=== PATIENT | female | born 1955 | race Caucasian/White ===

== ENCOUNTER 2017-10-21 08:57 | Inpatient (IN) ==
[2017-10-21] MEDS ORDERED: *HR* Dextrose 50 % in Water (Syg) 50 ML SYRINGE ONE (11:55)
[2017-10-21] MEDS ORDERED: Dextrose Gel 15 GM/37.5 ML TUBE PO PRN ×2 (12:05)
[2017-10-21] MEDS ORDERED: D5% in Water 1,000 ML IVC PRN (12:05)
[2017-10-21] MEDS ORDERED: Albuterol 2.5 MG/3 ML NEBULIZER IH PRN (12:06)
[2017-10-21] MEDS: *HR* Dextrose 50 % in Water (Syg) 50 ML SYRINGE IVP PRN (12:10)
--- NOTE | 2017-10-21 12:19 | Orthopedic History & Physical ---
Date of Encounter: 10/21/17 Time of Encounter: 12:19 Assessment and Plan (1) Dislocated shoulder Current visit: Yes Status: Chronic Qualifiers: Encounter type: subsequent encounter Laterality: left Qualified Code(s): S43.005D - Unspecified dislocation of left shoulder joint, subsequent encounter (2) Painful orthopaedic hardware Current visit: Yes Status: Chronic (3) Recurrent dislocation, left shoulder Current visit: Yes Status: Chronic (4) Closed left radial fracture Current visit: No Status: Chronic Qualifiers: Encounter type: initial encounter Radius location: distal Fracture morphology: unspecified fracture morphology Qualified Code(s): S52.502A - Unspecified fracture of the lower end of left radius, initial encounter for closed fracture (5) History of total replacement of left shoulder joint Current visit: Yes Status: Chronic (6) Altered mental status Current visit: Yes Status: Acute Qualifiers: Altered mental status type: unspecified Qualified Code(s): R41.82 - Altered mental status, unspecified (7) Diabetes Current visit: Yes Status: Chronic Qualifiers: Diabetes mellitus type: type 2 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 Huerta is a 61 year old female presents [facility] as a direct admission from our office at [facility]. She was seen by this provider in [facility] location this morning, 10/21/17. She is being admitted under Dr. Alberts secondary to her left shoulder prosthetic dislocation. She was most recently seen by Dr. Alberts in our office for recurrent dislocation of the left shoulder with painful orthopedic hardware and instability left shoulder on 10/15/17. She previously been scheduled for revision total shoulder surgery for 10/21/17 however it was revealed the patient was most recently admitted at [facility] for a medical complication. Her diagnosis at that admission was altered mental status with hypoglycemia. She is being admitted at this time for further clearance for surgery to be scheduled for next week. We will be consult hospitalist team for altered mental status as well as cardiology teams as patient has an extensive cardiac history. Patient was diagnosed with left proximal humerus fracture in 11/[address] Johnson at [facility]. She then underwent surgery by Dr. Johnson in 12/06/2016 for "Humeral head replacement left shoulder". Patient then developed left shoulder subluxation and underwent revision surgery by Dr. Johnson on 03/21/2017 for "removal humeral head and insertion of reverse total shoulder". She then saw Dr. Alberts on 10/05/17 for evaluation. Patient was then scheduled as stated above for revision shoulder surgery secondary to glenosphere dissociation and recurrent dislocation of the prosthetic joint of the left shoulder. Patient was admitted to [facility] in [place] on 10/18/17 for altered mental status. Review of these records reveal that patient has an extensive and known history of CHF, CKD, hypertension, diabetes mellitus type 2, hypothyroidism, CVA , and DVT. She was diagnosed with polypharmacy and hypoglycemia. She has a history of these per documentation. Records note that she was admitted for similar complaints on 10/02/17. Patient's urine drug tox screen at [facility] revealed antidepressant only. Patient was admitted with telemetry at [facility]. Patient informs this provider this morning in the office that her medications were changed and she has improved since discharge per patient which occurred per patient on 10/20/17. It is noted by this provider today, 10/21, that patient continues with altered mental status as she is oriented to person and place only. Patient then was seen by Dr. Santana at [facility] in [place] yesterday on 10/20 for her left wrist fracture. He has been monitoring her for a left distal humerus fracture that occurred after a fall onto the extremity since 06/2017 per documentation. She was then diagnosed with a left distal radius fracture on 09/26/17. This distal radius fracture occurred after a fall onto the extremity per documentation. Dr. Santana and Dr. Alberts have conversed regarding the distal radius fracture that is currently casted. On exam today patient is resting comfortably in bed. She is eating lunch at this time. She is alert and oriented to person and place. She does not initiate conversation. She does smile at appropriate comments and when this provider smiles to her in greeting. She is neurovascularly intact with regard to the bilateral upper extremities and lower extremities. Short arm cast is noted to the left wrist. Range of motion of left shoulder is significantly restricted. There is mild tenderness to palpation to the anterior shoulder. No skin disruption noted at this time. Most recent shoulder films reveal the following: XR/XR shoulder complete LT IMPRESSION: Chronic dislocation of the left shoulder arthroplasty with likely displaced humeral head articular component as well as glenohumeral anterior inferior dislocation. Possible acute nondisplaced fracture of the glenoid adjacent to the arthroplasty component. This is not completely visualized. No evidence of acute traumatic humeral diaphyseal fracture. Cardiomegaly and moderate pulmonary edema. D/ / 09/27/2017 11:09:50 Tyrone Zeng MD / alyssa Interpreting Provider: Tyrone Zeng MD Assessment: Recurrent left shoulder dislocation Painful orthopedic hardware History of total shoulder replacement with Glenoid dissociation Closed distal left radius fracture Altered mental status of uncertain origin Plan: Hospitalist and Cardiology teams consulted and input appreciated. Seeking clearance for surgery for Tuesday 10/24 per/by Dr. Alberts for Left total shoulder reverse revision. NPO at midnight 10/23 Leave cast to right wrist in place to the weekend. We will address at surgery on Tuesday 10/24. Admission orders placed by Dr. Alberts. Past Med Surg Social Fam HX - Past Medical History Medical history: atrial fibrillation, diabetes, hyperlipidemia, hypertension Additional medical history: [place] Psychiatric history: no psych history - Past Surgical History Surgical History: cholecystectomy, knee replacement, orthopedic, other, LIBBY/BSO Additional surgical history: Ablasion for A-fib - Social History Smoking Status: Unknown if ever smoked Smokeless Tobacco Status: No Alcohol use: none Drug use: none Medications and Allergies Albuterol Sulfate [Ventolin Hfa] 1 - 2 puff IH Q4-6H PRN 10/21/17 [History] Amitriptyline HCl 100 - 300 mg PO HS 10/21/17 [History] Amlodipine Besylate 10 mg PO DAILY 10/21/17 [History] Atenolol 100 mg PO DAILY 10/21/17 [History] Atorvastatin Calcium [Lipitor] 80 mg PO HS 10/21/17 [History] Cholecalciferol (Vitamin D3) [Vitamin D] 50,000 unit PO QWEEK 10/21/17 [History] Dicyclomine [Bentyl] 20 mg PO BID 10/21/17 [History] Escitalopram [Lexapro] 10 mg PO DAILY 10/21/17 [History] Fenofibric Acid (Choline) [Trilipix] 135 mg PO DAILY 10/21/17 [History] Fluticasone Propionate [Flovent Hfa] 2 puff IH BID 10/21/17 [History] Furosemide [Lasix] 20 mg PO QPM 10/21/17 [History] Furosemide [Lasix] 40 mg PO QAM 10/21/17 [History] Insulin Glargine,Hum.rec.anlog [Lantus Solostar] 40 unit SQ HS 10/21/17 [History ] Insulin NPH Hum/Reg Insulin Hm [Novolin 70-30 100 Unit/ml Vial] 60 unit SQ QPM 10/21/17 [History] Insulin NPH Hum/Reg Insulin Hm [Novolin 70-30 100 Unit/ml Vial] 70 unit SQ QAM 10/21/17 [History] Isosorbide MONOnitrate (24 HR) [Imdur] 30 mg PO DAILY 10/21/17 [History] Levothyroxine [Synthroid] 25 mcg PO 0630 10/21/17 [History] Losartan Potassium [Cozaar] 100 mg PO DAILY 10/21/17 [History] Memantine HCl [Memantine HCl ER] 28 mg PO HS 10/21/17 [History] Nitroglycerin [Nitrostat] 0.4 mg SL Q5M PRN 10/21/17 [History] Potassium Chloride [Klor-Con 10] 20 meq PO DAILY 10/21/17 [History] Quetiapine Fumarate [SEROquel] 50 - 100 mg PO HS 10/21/17 [History] Ranitidine HCl [Zantac] 300 mg PO DAILY 10/21/17 [History] Tizanidine HCl 4 mg PO TID PRN 10/21/17 [History] Topiramate [Topamax] 100 mg PO HS 10/21/17 [History] 3 Allergy/AdvReac Type Severity Reaction Status Date / Time coconut oil AdvReac Hives Verified 01/23/16 05:53 codeine AdvReac Hives Verified 01/23/16 05:51 All Systems Reviewed: The remainder of the systems were reviewed and are negative Physical Exam - Constitutional Vitals: Temp Pulse Resp BP Pulse Ox 98.3 F 77 18 136/79 93 10/21/17 11:16 10/21/17 11:16 10/21/17 11:16 10/21/17 11:16 10/21/17 11:32 Results - Labs Result Diagrams: 10/21/17 13:07 10/21/17 13:07 Labs: All other labs normal.
[2017-10-21 13:29] LABS: Basophils % 0.6 %; Eosinophils # 0.1 K/mcL (0.0-0.6); Hematocrit 39.3 % (35.3-44.9); Hemoglobin 12.9 g/dL (11.5-15.4); Immature Granulocytes % 0.9 % (0-4); Lymphocytes # 1.7 K/mcL (0.6-4.6); Lymphocytes % 24.6 %; Mean Corpuscular HGB Conc 32.8 g/dL (31.6-35.5); Mean Corpuscular Hemoglobin 28.9 pg (28.0-33.3); Mean Corpuscular Volume 88.1 fL (83.0-100.0); Mean Platelet Volume 10.8 fL (9.4-12.4); Monocytes # 0.4 K/mcL (0.0-1.3); Monocytes % 5.4 %; Neutrophils # 4.7 K/mcL (1.6-8.9); Platelet Count 290 K/mcL (140-400); Red Blood Count 4.46 M/mcL (3.82-4.97); Red Cell Distribution Width 14.6 % (11.5-14.5); Segmented Neutrophils % 67.5 %
[2017-10-21 13:46] LABS: Calcium 9.4 mg/dL (8.6-10.3); Potassium 3.2 mEq/L (3.5-5.1)
[2017-10-21 13:49] LABS: Prothrombin Time 11.1 Seconds (9.4-12.1)
[2017-10-21 13:52] LABS: Activated Partial Thrombo Time 31.9 Seconds (26.0-36.0)
[2017-10-21] MEDS ORDERED: tiZANidine 4 MG TABLET PO PRN (13:53)
[2017-10-21] MEDS ORDERED: Nitroglycerin 0.4 MG TAB.SUBL SL PRN (13:53)
[2017-10-21] MEDS ORDERED: *HR* LORazepam 2 MG/ML VIAL IVP ONE (14:11)
--- NOTE | 2017-10-21 14:37 | Internal Medicine Consult Note ---
<Mary Hall - Last Filed: 10/21/17 15:06> Date of Encounter: 10/21/17 Time of Encounter: 14:25 - Assessment and plan (1) Altered mental status Current Visit: Yes Status: Acute Assessment and plan: Schedule CT of head/brain Neuro checks q shift Qualifiers: Altered mental status type: unspecified Qualified Code(s): R41.82 - Altered mental status, unspecified (2) Dislocated shoulder Current Visit: Yes Status: Acute Assessment and plan: Dr. Alberts admitted patient and will follow Plan left shoulder repair (surgery) on Tuesday Qualifiers: Qualified Code(s): S43.006D - Unspecified dislocation of unspecified shoulder joint, subsequent encounter (3) A-fib Current Visit: Yes Status: Acute Assessment and plan: Chronic Patient has Foot pumps on No anticoagulation due to surgery on Tuesday. 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 Huerta is a 61 year old female with history of atrial fibrillation, diabetes mellitus type 2, hyperlipidemia, hypertension, and ablation of A. fib. Hospitalist consulted due to altered mental status and confusion noted by the patient. She is here from [facility] for a dislocated shoulder repair. Apparently the patient fell and broke her left wrist/arm and dislocated her shoulder which have been repaired in the past. She has a cast on the left arm. Today the patient is alert and oriented 3, she indicated she takes medications that causes her to be confused. She also is a diabetic who takes insulin and she indicated that the dosing had been decreased due to periods of hypoglycemia. She indicated she thinks her thinking has been a little better today, however she did not initiate any conversation. Neuro check completed and she has generalized weakness, but no focal deficits were noted at this time. Will get Ct of the head/brain and start neuro checks q shift. Past Med Surg Social Fam HX - Past Medical History Medical history: atrial fibrillation, diabetes, hyperlipidemia, hypertension Additional medical history: [place] Psychiatric history: no psych history - Past Surgical History Surgical History: cholecystectomy, knee replacement, orthopedic, other, LIBBY/BSO Additional surgical history: Ablasion for A-fib - Social History Smoking Status: Unknown if ever smoked Smokeless Tobacco Status: No Alcohol use: none Drug use: none - Constitutional Constitutional: weakness (Generalized) - EENT Eyes: no dry eye, no pain Ears: no ear discharge, no ear pain Nose, mouth and throat: no post-nasal drip, no sinus pain - Cardiovascular Cardiovascular ROS IM: no dyspnea, no lightheadedness, no palpitations - Respiratory Respiratory: no cough - Gastrointestinal Gastrointestinal: no constipation, no heartburn, no loose stools, no nausea, no vomiting - Genitourinary Genitourinary: no hematuria Menstruation: no post hysterectomy - Musculoskeletal Musculoskeletal ROS IM: no muscle weakness - Integumentary Integumentary IM: no erythema - Neurological Neurological ROS: confusion, lack of coordination (Falls at home), weakness - Hematologic/Lymphatic Hematologic/Lymphatic: no easy bleeding, no easy bruising Internal Medicine - CN: Meds Albuterol Sulfate [Ventolin Hfa] 1 - 2 puff IH Q4-6H PRN 10/21/17 [History] Amitriptyline HCl 100 - 300 mg PO HS 10/21/17 [History] Amlodipine Besylate 10 mg PO DAILY 10/21/17 [History] Atenolol 100 mg PO DAILY 10/21/17 [History] Atorvastatin Calcium [Lipitor] 80 mg PO HS 10/21/17 [History] Cholecalciferol (Vitamin D3) [Vitamin D] 50,000 unit PO QWEEK 10/21/17 [History] Dicyclomine [Bentyl] 20 mg PO BID 10/21/17 [History] Escitalopram [Lexapro] 10 mg PO DAILY 10/21/17 [History] Fenofibric Acid (Choline) [Trilipix] 135 mg PO DAILY 10/21/17 [History] Fluticasone Propionate [Flovent Hfa] 2 puff IH BID 10/21/17 [History] Furosemide [Lasix] 20 mg PO QPM 10/21/17 [History] Furosemide [Lasix] 40 mg PO QAM 10/21/17 [History] Insulin Glargine,Hum.rec.anlog [Lantus Solostar] 40 unit SQ HS 10/21/17 [History ] Insulin NPH Hum/Reg Insulin Hm [Novolin 70-30 100 Unit/ml Vial] 60 unit SQ QPM 10/21/17 [History] Insulin NPH Hum/Reg Insulin Hm [Novolin 70-30 100 Unit/ml Vial] 70 unit SQ QAM 10/21/17 [History] Isosorbide MONOnitrate (24 HR) [Imdur] 30 mg PO DAILY 10/21/17 [History] Levothyroxine [Synthroid] 25 mcg PO 0630 10/21/17 [History] Losartan Potassium [Cozaar] 100 mg PO DAILY 10/21/17 [History] Memantine HCl [Memantine HCl ER] 28 mg PO HS 10/21/17 [History] Nitroglycerin [Nitrostat] 0.4 mg SL Q5M PRN 10/21/17 [History] Potassium Chloride [Klor-Con 10] 20 meq PO DAILY 10/21/17 [History] Quetiapine Fumarate [SEROquel] 50 - 100 mg PO HS 10/21/17 [History] Ranitidine HCl [Zantac] 300 mg PO DAILY 10/21/17 [History] Tizanidine HCl 4 mg PO TID PRN 10/21/17 [History] Topiramate [Topamax] 100 mg PO HS 10/21/17 [History] 3 Allergy/AdvReac Type Severity Reaction Status Date / Time coconut oil AdvReac Hives Verified 01/23/16 05:53 codeine AdvReac Hives Verified 01/23/16 05:51 Internal Medicine - CN: Exam - Constitutional Vitals: Temp Pulse Resp BP Pulse Ox 98.3 F 77 18 136/79 93 10/21/17 11:16 10/21/17 11:16 10/21/17 11:16 10/21/17 11:16 10/21/17 11:32 General appearance IM: Present: A&O X 3, answers questions appropriately - Head Head exam: Present: atraumatic, normocephalic - Eye Eye exam: Present: normal appearance Pupils: Present: PERRL - ENT ENT exam: Absent: mucous membranes dry - Neck Neck exam general surgery: Present: full ROM, normal inspection - Respiratory Respiratory exam: Present: CTAB - Cardiovascular Cardiovascular exam IM: Present: irregular rhythm (12 lead showed EKG) - GI/Abdominal GI/Abdominal exam IM: Present: normal bowel sounds, soft - Extremities Exam Extremities exam IM: Absent: full ROM (Left lower arm casted, left shoulder prosthesis displaced) - Expanded Upper Extremities Exam Shoulder exam: Present: dislocation (Left shoulder) Upper Arm exam: Absent: full ROM (Left upper extremity cast) Internal Medicine - CN: Reslt - Labs CBC & Chem 7: 10/21/17 13:07 10/21/17 13:07 Labs: Short CBC 10/21/17 Range/Units 13:07 WBC 6.9 (4.3-11.1) K/mcL Hgb 12.9 (11.5-15.4) g/dL Hct 39.3 (35.3-44.9) % Plt Count 290 (140-400) K/mcL Neutrophils # 4.7 (1.6-8.9) K/mcL BMP 10/21/17 13:07 Sodium 140 Potassium 3.2 L Chloride 102 Carbon Dioxide 30 H BUN 20 Creatinine 1.14 Glucose 104 Calcium 9.4 - ABG Interpretation ABG results: PT/INR, D-dimer PT 11.1 Seconds (9.4-12.1) 10/21/17 13:07 Consult Discharge Plan - Plan Referrals: Mary Zendejas MD [Primary Care Provider] - <Zoë Ellsworth - Last Filed: 10/22/17 09:11> Date of Encounter: 10/21/17 - Time Spent With Patient Total time spent is greater than 50% in coordination of care (as documented) at patient's floor/unit and/or counseling patient: Internal Medicine - CN: HPI - Data of Consult Requesting Physician: Richard Alberts MD - Consult Narrative History of present illness: Ms. Huerta is a 61 year old female Internal Medicine - CN: Exam - Constitutional Vitals: Temp Pulse Resp BP Pulse Ox 98.1 F 84 16 165/91 95 10/22/17 07:48 10/22/17 07:48 10/22/17 07:48 10/22/17 07:48 10/22/17 07:48 Internal Medicine - CN: Reslt - Labs CBC & Chem 7: 10/22/17 06:26 10/22/17 06:26 Labs: Short CBC 10/21/17 10/22/17 Range/Units 13:07 06:26 WBC 6.9 6.3 (4.3-11.1) K/mcL Hgb 12.9 12.8 (11.5-15.4) g/dL Hct 39.3 38.8 (35.3-44.9) % Plt Count 290 265 (140-400) K/mcL Neutrophils # 4.7 3.3 (1.6-8.9) K/mcL BMP 10/21/17 10/22/17 13:07 06:26 Sodium 140 141 Potassium 3.2 L 2.6 L Chloride 102 106 Carbon Dioxide 30 H 26 BUN 20 25 H Creatinine 1.14 1.18 Glucose 104 49 L Calcium 9.4 9.1 Liver Function 10/22/17 Range/Units 06:26 Total Bilirubin 0.5 (0.3-1.0) mg/dL AST 12 L (13-39) Units/L ALT 8 (7-52) Units/L Alkaline Phosphatase 74 (34-104) Units/L Albumin 3.6 (3.5-5.7) g/dL - ABG Interpretation ABG results: PT/INR, D-dimer PT 11.1 Seconds (9.4-12.1) 10/21/17 13:07 - Impressions Impressions Head CT 10/21/17 14:24 IMPRESSION: No acute intracranial abnormality. D/ / Delio Salas MD / Delio Salas MD Interpreting Provider: Delio Salas MD - Attending Attestation I have personally performed a face to face evaluation on this patient. I have reviewed and agree with the care plan provided by SHIPPING AND RECEIVING SUPERVISOR Mary Hall. History and Exam by me shows: Ms. Huerta is a 61 year old female with a relevant past medical history of CAD s/p [place] and PCI 2013, abhi not on anticoagulation, HTN, HLD, CVA, DM, heart murmur, diastolic CHF who admitted under Dr. Alberts's service for a tentatively scheduled revision of Left shoulder repair on 10/24/17. Apparently pt was admitted at [facility] for altered mental status. We were asked to evaluate the pt for AMS. Pt is alert, awake and O x 3 now. Does look slightly confused / slow / ?? Demented. A/p 1. AMS Unclear etiology Not sure this is her baseline will obtain CT of head check ammonia levels in AM on Tele neuro checks q shift
--- NOTE | 2017-10-21 15:26 | Cardiology Consult Note ---
<Frannie Pak - Last Filed: 10/21/17 15:20> Date of Encounter: 10/21/17 Time of Encounter: 15:00 Assessment and Plan (1) Preop cardiovascular exam Current Visit: Yes Status: Acute Per cardiology: -Preop risk stratification for orthopedic procedure. -Significant cardiac history. -Denies current symptoms. -Able to achieve 4 mets. -TTE 10/07/17 with LVEF 60-65%. Mild asymmetric hypertrophy of the basal seputm. Moderate left ventricular diastolic dysfunction. Normal right ventricular structure and function. Mild aortic regurgitation. Mild aortic stenosis. Mean gradient 13 mmHg. Mild tricuspid regurgitation. Mild-moderate pulmonary hypertension. No segmental wall motion abnormalities. -ECG with atrial fibrillation, no acute ischemic changes. -Discussed and reviewed with , patient is at moderate risk for michael- operative cardiovascular complications. -Anticipate cardiology sign off once seen and evaluated by . (2) A-fib Current Visit: Yes Status: Acute Per cardiology: -Known a.fib. Rate controlled on BB. -Follows with [facility]. -[id number] score 7 (gender, HTN, DM, vascular disease, CHF, CVA). Not on anticoagulation. Reports takes ASA at home. No anticoagulation listed on medication list. -Patient educated and aware of increased risk of CVA/embolic event with high [id number] score, states understanding. Recommend anticoagulation, however patient wishes to discuss with primary captain cannery tender prior to starting. Qualifiers: Atrial fibrillation type: chronic Qualified Code(s): I48.2 - Chronic atrial fibrillation Discussion w patient/family: The assessment and plan as outlined above was discussed with the patient who expressed understanding and agreement. All questions were answered. Thank you for involving us in the care of your patient. Please call with any questions. Discussed and reviewed with . History of Present Illness Consult date: 10/21/17 Requesting physician: Cheli Heaton Consult reason: pre op Chief complaint: shoulder pain History of present illness: Ms. Huerta is a 61 year old female with a relevant past medical history of CAD s/p [place] and PCI 2013, a.fib not on anticoagulation, HTN, HLD, CVA, DM, heart murmur, diastolic CHF who presented to [facility] with complaints of shoulder pain. Patient is tentatively scheduled for orthopedic surgery 10/24/17. Cardiology has been consulted for pre-op risk stratification. Patient denies chest pain, shortness fo breath, edema. Patient reports able to walk up a flight of stairs without stopping or symptoms. Patient follows with captain cannery tender at [facility]. Past Med Surg Social Fam HX - Past Medical History Attestation: Yes The following information was validated with the patient. Source: patient, old records reviewed Medical history: atrial fibrillation, coronary artery disease, CVA, diabetes, hyperlipidemia, hypertension, myocardial infarction Additional medical history: [place] Psychiatric history: no psych history - Past Surgical History Surgical History: cholecystectomy, knee replacement, orthopedic, other, LIBBY/BSO Additional surgical history: Ablasion for A-fib - Social History Smoking Status: Unknown if ever smoked Smokeless Tobacco Status: No Alcohol use: none Drug use: none Medications and Allergies Albuterol Sulfate [Ventolin Hfa] 1 - 2 puff IH Q4-6H PRN 10/21/17 [History] Amitriptyline HCl 100 - 300 mg PO HS 10/21/17 [History] Amlodipine Besylate 10 mg PO DAILY 10/21/17 [History] Atenolol 100 mg PO DAILY 10/21/17 [History] Atorvastatin Calcium [Lipitor] 80 mg PO HS 10/21/17 [History] Cholecalciferol (Vitamin D3) [Vitamin D] 50,000 unit PO QWEEK 10/21/17 [History] Dicyclomine [Bentyl] 20 mg PO BID 10/21/17 [History] Escitalopram [Lexapro] 10 mg PO DAILY 10/21/17 [History] Fenofibric Acid (Choline) [Trilipix] 135 mg PO DAILY 10/21/17 [History] Fluticasone Propionate [Flovent Hfa] 2 puff IH BID 10/21/17 [History] Furosemide [Lasix] 20 mg PO QPM 10/21/17 [History] Furosemide [Lasix] 40 mg PO QAM 10/21/17 [History] Insulin Glargine,Hum.rec.anlog [Lantus Solostar] 40 unit SQ HS 10/21/17 [History ] Insulin NPH Hum/Reg Insulin Hm [Novolin 70-30 100 Unit/ml Vial] 60 unit SQ QPM 10/21/17 [History] Insulin NPH Hum/Reg Insulin Hm [Novolin 70-30 100 Unit/ml Vial] 70 unit SQ QAM 10/21/17 [History] Isosorbide MONOnitrate (24 HR) [Imdur] 30 mg PO DAILY 10/21/17 [History] Levothyroxine [Synthroid] 25 mcg PO 0630 10/21/17 [History] Losartan Potassium [Cozaar] 100 mg PO DAILY 10/21/17 [History] Memantine HCl [Memantine HCl ER] 28 mg PO HS 10/21/17 [History] Nitroglycerin [Nitrostat] 0.4 mg SL Q5M PRN 10/21/17 [History] Potassium Chloride [Klor-Con 10] 20 meq PO DAILY 10/21/17 [History] Quetiapine Fumarate [SEROquel] 50 - 100 mg PO HS 10/21/17 [History] Ranitidine HCl [Zantac] 300 mg PO DAILY 10/21/17 [History] Tizanidine HCl 4 mg PO TID PRN 10/21/17 [History] Topiramate [Topamax] 100 mg PO HS 10/21/17 [History] 3 Allergy/AdvReac Type Severity Reaction Status Date / Time coconut oil AdvReac Hives Verified 01/23/16 05:53 codeine AdvReac Hives Verified 01/23/16 05:51 All Systems Review: The remainder of the systems were reviewed and are negative - Cardiovascular Cardiovascular: as per HPI Physical Examination Vital Signs, Last 4 Hours Pulse Ox 10/21/17 11:32 93 Vital Signs Temperature 98.3 F 10/21/17 11:16 Pulse Rate 77 10/21/17 11:16 Respiratory Rate 18 10/21/17 11:16 Blood Pressure 136/79 10/21/17 11:16 O2 Sat by Pulse Oximetry 93 10/21/17 11:16 Temperature 98.3 F 10/21/17 11:16 Pulse Rate 77 10/21/17 11:16 Respiratory Rate 18 10/21/17 11:16 Blood Pressure 136/79 10/21/17 11:16 O2 Sat by Pulse Oximetry 93 10/21/17 11:32 General: Conversant, No Apparent Distress HEENT: Atraumatic, Normocephaly, Mucus Membranes Moist Neck: No JVD, Normal carotid pulses Cardiac: Normal S1 and S2, Other (Irregularly irregular, systolic murmur noted. ) Lungs: Normal Breath Sounds, No Wheeze, Rales, Rhonchi Neuro: Alert and responsive, No focal deficits noted Abdomen: Soft, Non-Tender Skin: No rashes noted on visualized skin Musculoskeletal: No Chest Wall Tenderness Extremities: No Clubbing, No Cyanosis, No Edema, Normal Pulses Results 10/21/17 13:07 10/21/17 13:07 Lab Results Active Medications Albuterol Sulfate (Proventil Neb) 2.5 mg IH Q2H PRN; Protocol PRN Reason: Shortness Of Breath/Wheezing Stop: 04/22/18 12:07 Amitriptyline HCl (Elavil) 100 mg PO HS [facility]ETTA Stop: 04/22/18 21:01 Amlodipine Besylate (Norvasc) 10 mg PO DAILY R[place]TA PRN Reason: Protocol Stop: 04/23/18 09:01 Atenolol (Tenormin) 100 mg PO DAILY [facility] Stop: 04/23/18 09:01 Atorvastatin Calcium (Lipitor) 80 mg PO HS R[facility]ETTA Stop: 04/22/18 21:01 Budesonide/Formoterol Fumarate (Symbicort) 2 puff IH BIDR [place] PRN Reason: Protocol Stop: 04/22/18 22:01 Dextrose/Water (Dextrose 50% (Syg)) 25 ml IVP AD PRN PRN Reason: Hypoglycemia Stop: 04/22/18 12:06 Last Admin: 10/21/17 12:10 Dose: 25 ml Escitalopram Oxalate (Lexapro) 10 mg PO DAILY [facility] Stop: 04/23/18 09:01 Furosemide (Lasix) 40 mg PO DAILY [facility] Stop: 04/23/18 09:01 Furosemide (Lasix) 20 mg PO QPM [facility] Stop: 04/22/18 18:01 Glucagon (Glucagen) 1 mg IM ONCE PRN PRN Reason: Hypoglycemia Stop: 04/22/18 12:06 Glucose (Gluctose) 15 gm PO ONCE PRN PRN Reason: Hypoglycemia Stop: 04/22/18 12:06 Glucose (Gluctose) 30 gm PO ONCE PRN PRN Reason: Hypoglycemia Stop: 04/22/18 12:06 Dextrose (Dextrose 5%) 1,000 mls @ 100 mls/hr IVC .Q10H PRN PRN Reason: HYPOGLYCEMIA Stop: 04/22/18 12:06 Insulin Detemir (Levemir) 40 unit SQ HS [facility] Stop: 04/22/18 21:01 Insulin Human Lispro (Humalog) 0 units SQ HS [facility] PRN Reason: Protocol Stop: 04/22/18 21:01 Insulin Human Lispro (Humalog) 0 units SQ TIDAC [facility] PRN Reason: Protocol Stop: 04/22/18 16:31 Isosorbide Mononitrate (Imdur) 30 mg PO DAILY [facility] Stop: 04/23/18 09:01 Levothyroxine Sodium (Synthroid) 25 mcg PO DAILY@0630 [facility] Stop: 04/23/18 06:31 Losartan Potassium (Cozaar) 100 mg PO DAILY [facility] PRN Reason: Protocol Stop: 04/23/18 09:01 Memantine (Namenda) 10 mg PO BID [facility] Stop: 04/22/18 21:01 Nitroglycerin (Nitroglycerin) 0.4 mg SL Q5MIN PRN PRN Reason: Chest Pain Stop: 04/22/18 13:54 Potassium Chloride (Potassium Chloride) 20 meq PO DAILY [facility] Stop: 04/23/18 09:01 Tizanidine HCl (Zanaflex) 4 mg PO TID PRN PRN Reason: Muscle Spasm Stop: 04/22/18 13:54 Topiramate (Topamax) 100 mg PO HS [facility] Stop: 04/22/18 21:01 Vitamin D (Vitamin D) 1,000 unit PO DAILY [facility] Stop: 04/23/18 09:01 Laboratory Tests 10/21/17 10/21/17 13:07 13:07 Hgb 12.9 Creatinine 1.14 - Imaging and Cardiology Chest Xray: report reviewed Echo: report reviewed - EKG Interpretation EKG results cardiology: personally reviewed (ECG with abhi.) Consult Discharge Plan - Plan Referrals: Mary Zendejas MD [Primary Care Provider] - <Ryne Cruz - Last Filed: 10/24/17 22:32> Date of Encounter: 10/21/17 Time of Encounter: 17:20 - Attending Attestation I have personally performed a face to face evaluation on this patient. I have reviewed and agree with the care plan. History and Exam by me shows: CC: a fib Pt admitted for evaluation of shoulder pain, found to be in A fib, is chronic, asymptomatic, not on systemiic anticoagulation. Pt is unsure why she is not on systemic anticoagulation or dual antiplatelle tx. She is following with outside cardiology. at [facility]. She denies chest pain, pressure or shortness of breath. She reports hx CAD, no intervention, has stable class 1 symptoms. . She is active, able to perfrom all activies of dialy living without symptoms. ROS: Reviewed PMH: reviewed PE: pt seen and examined, agree with documentation above. IMP: 1. Chronic a fib with controlled ventricular response, on current meds, not on systemic anticoagulation for unclear reasons, recommend she begin dual antiplatelt tx following planned surgical intervention, discuss systemic anticoagulation with her attending captain cannery tender. 2. Stable class ! angina, no chest pain, pressure or shortness of breath, EKG richin Pt is at moderate cardiovascular risk for planned procedure. Assessment and Plan Discussion w patient/family: The assessment and plan as outlined above was discussed with the patient and/or family members who expressed understanding and agreement. All questions were answered. Thank you for involving us in the care of your patient. Please call with any questions. History of Present Illness History of present illness: Ms. Huerta is a 61 year old female All Systems Review: The remainder of the systems were reviewed and are negative Physical Examination Vital Signs, Last 4 Hours Temp Pulse Resp BP Pulse Ox 10/24/17 21:49 95 10/24/17 20:31 18 107/68 95 10/24/17 19:27 97.7 F 88 18 107/68 95 Results 10/24/17 12:01 10/23/17 08:48 Lab Results 10/24/17 12:01 Hgb 12.5 Hct 37.4
[2017-10-21] MEDS: Insulin LISPRO 300 UNITS/3 ML VIAL SQ SCH ×2 (16:40→21:49)
[2017-10-21] MEDS: Furosemide 20 MG TABLET PO SCH (16:40)
[2017-10-21] MEDS ORDERED: Insulin LISPRO 300 UNITS/3 ML VIAL SQ SCH (18:00)
[2017-10-21] MEDS: Budesonide/Formoterol 160/4.5 MDI IH SCH (22:21)
[2017-10-21] MEDS: Insulin DETEMIR 100 UNIT/ML X5UNITS SQ SCH (22:31)
[2017-10-21] MEDS: Topiramate 100 MG TABLET PO SCH (22:31)
[2017-10-22] MEDS: *HR* Dextrose 50 % in Water (Syg) 50 ML SYRINGE IVP PRN (04:41)
[2017-10-22] MEDS: Levothyroxine 25 MCG TABLET PO SCH (05:01)
[2017-10-22 06:41] LABS: Basophils # 0.1 K/mcL (0.0-0.2); Basophils % 0.8 %; Eosinophils # 0.1 K/mcL (0.0-0.6); Eosinophils % 1.6 %; Hematocrit 38.8 % (35.3-44.9); Hemoglobin 12.8 g/dL (11.5-15.4); Immature Granulocytes % 0.8 % (0-4); Lymphocytes # 2.2 K/mcL (0.6-4.6); Lymphocytes % 35.6 %; Mean Corpuscular Volume 84.9 fL (83.0-100.0); Mean Platelet Volume 10.5 fL (9.4-12.4); Monocytes # 0.5 K/mcL (0.0-1.3); Neutrophils # 3.3 K/mcL (1.6-8.9); Platelet Count 265 K/mcL (140-400); Red Blood Count 4.57 M/mcL (3.82-4.97); Red Cell Distribution Width 14.7 % (11.5-14.5); Segmented Neutrophils % 53.2 %
[2017-10-22] MEDS: Insulin LISPRO 300 UNITS/3 ML VIAL SQ SCH ×4 (07:30→21:43)
[2017-10-22 07:40] LABS: Albumin 3.6 g/dL (3.5-5.7); Albumin/Globulin Ratio 1.3 (1.1-2.2); Bilirubin,Total 0.5 mg/dL (0.3-1.0); Calcium 9.1 mg/dL (8.6-10.3); Globulin 2.7 g/dL (2.4-3.5); Potassium 2.6 mEq/L (3.5-5.1); Total Protein 6.3 g/dL (6.4-8.9)
--- NOTE | 2017-10-22 08:15 | Orthopedics Progress Note ---
Date of Encounter: 10/22/17 Time of Encounter: 08:14 Subjective Interval history: Patient seen this morning has a dissociated glenosphere and a dislocated shoulder patient is being evaluated for surgical clearance secondary to altered mental status. Plan is for surgery on Tuesday revision left total shoulder. Case discussed and reviewed with the patient. Objective Vital signs: Vital Signs Temp Pulse Resp BP Pulse Ox 10/22/17 07:48 98.1 F 84 16 165/91 95 10/22/17 02:59 98.9 F 85 17 151/85 93 10/22/17 01:24 99.1 F 90 16 166/92 95 10/21/17 22:20 97 10/21/17 21:03 99.5 F 96 16 161/90 97 10/21/17 15:36 98.3 F 78 15 135/79 96 10/21/17 11:32 93 10/21/17 11:16 98.3 F 77 18 136/79 93 Intake and Output 10/21/17 10/22/17 10/22/17 23:59 07:59 15:59 Other: Blood Glucose* 175 42 - Labs CBC & BMP: 10/22/17 06:26 10/22/17 06:26 Labs: Abnormal lab results RDW 14.7 % (11.5-14.5) H 10/22/17 06:26 Potassium 2.6 mEq/L (3.5-5.1) L 10/22/17 06:26 BUN 25 mg/dL (8-23) H 10/22/17 06:26 Est GFR ( Amer) 56 (> 60) L 10/22/17 06:26 Est GFR (Non-Af Amer) 46 (> 60) L 10/22/17 06:26 Glucose 49 mg/dL (70-105) L 10/22/17 06:26 POC Glucose 112 mg/dL (70-99) H 10/22/17 01:05 AST 12 Units/L (13-39) L 10/22/17 06:26 Serum Total Protein 6.3 g/dL (6.4-8.9) L 10/22/17 06:26 - VTE Documentation of Mechanical Device: Venous foot pump, device Consult Discharge Plan - Plan Referrals: Mary Zendejas MD [Primary Care Provider] -
[2017-10-22 08:36] LABS: Magnesium 1.9 mg/dL (1.6-2.6)
[2017-10-22] MEDS: Budesonide/Formoterol 160/4.5 MDI IH SCH ×2 (10:37→20:56)
[2017-10-22] MEDS: Cholecalciferol (D-3) 1,000 UNIT TABLET PO SCH (10:49)
[2017-10-22] MEDS: Furosemide 40 MG TABLET PO SCH (10:50)
[2017-10-22] MEDS: amLODIPine 5 MG TABLET PO SCH (10:50)
[2017-10-22] MEDS: Isosorbide MONOnitrate (24 HR) 30 MG TAB.ER.24H PO SCH (10:50)
--- NOTE | 2017-10-22 12:18 | Internal Med Progress Note ---
Date of Encounter: 10/22/17 Time of Encounter: 12:16 - Assessment and plan (1) Altered mental status Current Visit: Yes Status: Resolved Assessment and plan: Resolved. Awake, alert, and oriented x 3. No complaints at this time. CT head was negative. Neurochecks all normal. Will sign off. Thank you for allowing us to participate in the care of your patient. Please feel free to reconsult us if necessary. Qualifiers: Altered mental status type: unspecified Qualified Code(s): R41.82 - Altered mental status, unspecified (2) A-fib Current Visit: Yes Status: Chronic Assessment and plan: Continue telemetry. Cardiology consulted for pre-op clearance. Patient declines anticoagulation at this time. Continue home atenolol. SCDs as per below. Qualifiers: Atrial fibrillation type: chronic Qualified Code(s): I48.2 - Chronic atrial fibrillation (3) Diabetes Current Visit: Yes Status: Chronic Assessment and plan: Continue home long acting insulin. Continue accuchecks and low dose SSI QID AC/ HS. Qualifiers: Diabetes mellitus type: type 2 Diabetes mellitus alf insulin use: unspecified intermission coordinator insulin use status Diabetes mellitus complication status : with unspecified complications Qualified Code(s): E11.8 - Type 2 diabetes mellitus with unspecified complications (4) Dislocated shoulder Current Visit: Yes Status: Acute Assessment and plan: Management per primary. Qualifiers: Encounter type: subsequent encounter Laterality: left Qualified Code(s): S43.005D - Unspecified dislocation of left shoulder joint, subsequent encounter (5) DVT prophylaxis Current Visit: Yes Status: Acute Assessment and plan: Defer anticoagulation at this time due to scheduled surgery. Continue SCDs. - Time Spent With Patient Total time spent is greater than 50% in coordination of care (as documented) at patient's floor/unit and/or counseling patient: less than 15 minutes - Subjective Interval history: Patient had no acute events overnight. She is awake, alert, and oriented x 3. She is conversing appropriately. She is in good spirits. She denies headache, confusion, fever, chills, chest pain, SOB, nausea, vomiting, and abdominal pain. She has mild pain in left shoulder. She has no other complaints at this time. - Constitutional Vitals: Temp Pulse Resp BP Pulse Ox 98.1 F 84 14 165/91 95 10/22/17 07:48 10/22/17 07:48 10/22/17 10:38 10/22/17 07:48 10/22/17 10:38 General appearance: Present: cooperative, A&O X 3, pleasant, no acute distress, answers questions appropriately - Respiratory Respiratory exam: Present: CTAB. Absent: accessory muscle use, rales, rhonchi, wheezes Additional comments: Normal WOB - Cardiovascular Cardiovascular exam: Present: RRR, +S1, +S2. Absent: diastolic murmur, gallop, rubs, systolic murmur Additional comments: No BLE edema - GI/Abdominal GI/Abdominal exam: Present: normal bowel sounds, soft. Absent: distended, hepatomegaly, mass, splenomegaly, tenderness - Extremities Exam Additional comments: Mild TTP over left shoulder - Psychiatric Psychiatric exam: Present: normal affect, normal mood. Absent: agitated, anxious, depressed - Skin Skin exam: Present: dry, intact, warm. Absent: cyanosis, rash Internal Medicine: Result - Labs CBC & Chem 7: 10/22/17 06:26 10/22/17 06:26 Labs: Short CBC 10/21/17 10/22/17 Range/Units 13:07 06:26 WBC 6.9 6.3 (4.3-11.1) K/mcL Hgb 12.9 12.8 (11.5-15.4) g/dL Hct 39.3 38.8 (35.3-44.9) % Plt Count 290 265 (140-400) K/mcL Neutrophils # 4.7 3.3 (1.6-8.9) K/mcL BMP 10/21/17 10/22/17 13:07 06:26 Sodium 140 141 Potassium 3.2 L 2.6 L Chloride 102 106 Carbon Dioxide 30 H 26 BUN 20 25 H Creatinine 1.14 1.18 Glucose 104 49 L Calcium 9.4 9.1 Liver Function 10/22/17 Range/Units 06:26 Total Bilirubin 0.5 (0.3-1.0) mg/dL AST 12 L (13-39) Units/L ALT 8 (7-52) Units/L Alkaline Phosphatase 74 (34-104) Units/L Albumin 3.6 (3.5-5.7) g/dL - ABG Interpretation ABG results: PT/INR, D-dimer PT 11.1 Seconds (9.4-12.1) 10/21/17 13:07 - Impressions Impressions Head CT 10/21/17 14:24 IMPRESSION: No acute intracranial abnormality. D/ / Delio Salas MD / Delio Salas MD Interpreting Provider: Delio Salas MD - VTE Documentation of Mechanical Device: Intermittent pneumatic compression device Consult Discharge Plan - Plan Referrals: Mary Zendejas MD [Primary Care Provider] -
[2017-10-22] MEDS: Furosemide 20 MG TABLET PO SCH (18:02)
[2017-10-22] MEDS: Insulin DETEMIR 100 UNIT/ML X5UNITS SQ SCH (21:44)
[2017-10-22] MEDS: Topiramate 100 MG TABLET PO SCH (21:57)
[2017-10-23] MEDS: Levothyroxine 25 MCG TABLET PO SCH (06:53)
[2017-10-23] MEDS: Budesonide/Formoterol 160/4.5 MDI IH SCH ×3 (07:56→20:44)
[2017-10-23 09:21] LABS: Basophils # 0.1 K/mcL (0.0-0.2); Basophils % 0.8 %; Eosinophils # 0.1 K/mcL (0.0-0.6); Eosinophils % 1.6 %; Hematocrit 41.8 % (35.3-44.9); Hemoglobin 13.6 g/dL (11.5-15.4); Immature Granulocytes % 0.8 % (0-4); Lymphocytes # 1.9 K/mcL (0.6-4.6); Lymphocytes % 29.8 %; Mean Corpuscular HGB Conc 32.5 g/dL (31.6-35.5); Mean Corpuscular Hemoglobin 28.3 pg (28.0-33.3); Mean Corpuscular Volume 87.1 fL (83.0-100.0); Mean Platelet Volume 10.7 fL (9.4-12.4); Monocytes # 0.4 K/mcL (0.0-1.3); Monocytes % 6.5 %; Neutrophils # 3.8 K/mcL (1.6-8.9); Platelet Count 275 K/mcL (140-400); Red Cell Distribution Width 14.8 % (11.5-14.5); Segmented Neutrophils % 60.5 %
[2017-10-23 09:40] LABS: Albumin 3.8 g/dL (3.5-5.7); Albumin/Globulin Ratio 1.3 (1.1-2.2); Bilirubin,Total 0.5 mg/dL (0.3-1.0); Calcium 9.4 mg/dL (8.6-10.3); Total Protein 6.8 g/dL (6.4-8.9)
[2017-10-23] MEDS: Insulin LISPRO 300 UNITS/3 ML VIAL SQ SCH ×4 (09:59→21:53)
[2017-10-23] MEDS: Furosemide 40 MG TABLET PO SCH (10:08)
[2017-10-23] MEDS: Cholecalciferol (D-3) 1,000 UNIT TABLET PO SCH (10:08)
[2017-10-23] MEDS: amLODIPine 5 MG TABLET PO SCH (10:08)
[2017-10-23] MEDS: Isosorbide MONOnitrate (24 HR) 30 MG TAB.ER.24H PO SCH (10:08)
--- NOTE | 2017-10-23 14:19 | Orthopedics Progress Note ---
Date of Encounter: 10/23/17 Time of Encounter: 14:17 Subjective Principal diagnosis: Left total shoulder arthroplasty failure Interval history: Patient is comfortable without complaints Left shoulder anterior swelling and palpable mass under old scar Patient has a short arm cast, she has good motion of digits Sensation intact, good cap refill Assessment patient has a dislocated left total shoulder arthroplasty with loosening of implants She also has a stable left 3 week old distal radius fracture Plan Patient is be optimized and cleared for surgery for tomorrow morning. Nothing by mouth after midnight Objective Vital signs: Vital Signs Temp Pulse Resp BP Pulse Ox 10/23/17 11:17 98.9 F 95 16 143/84 92 10/23/17 08:28 97.7 F 96 16 143/85 94 10/23/17 05:13 151/74 10/23/17 05:03 98.1 F 87 18 169/106 93 10/23/17 01:05 98.2 F 87 18 161/90 93 10/22/17 22:00 93 10/22/17 20:50 98.5 F 86 18 150/86 93 10/22/17 16:42 98 F 81 18 126/88 94 Intake and Output 10/22/17 10/23/17 10/23/17 23:59 07:59 15:59 Intake Total 240 / 240 Balance 240 / 240 Intake: Oral 240 / 240 Other: Meal Breakfast Percent of Meal Consumed 100% Stool Size Small Stool Consistency formed Stool Color Brown # Bowel Movements 1 Weight 68 kg Blood Glucose* 92 273 Patient Weight 10/23/17 23:59 Weight 68 kg - Labs CBC & BMP: 10/23/17 08:48 10/23/17 08:48 Labs: Abnormal lab results RDW 14.8 % (11.5-14.5) H 10/23/17 08:48 Potassium 3.0 mEq/L (3.5-5.1) L 10/23/17 08:48 BUN 27 mg/dL (8-23) H 10/23/17 08:48 Est GFR ( Amer) 56 (> 60) L 10/23/17 08:48 Est GFR (Non-Af Amer) 46 (> 60) L 10/23/17 08:48 Glucose 212 mg/dL (70-105) H 10/23/17 08:48 Calculated Osmolality 305 (280-300) H 10/23/17 08:48 Ammonia 58 mcmol/L (16-53) H 10/22/17 14:28 - VTE Documentation of Mechanical Device: Intermittent pneumatic compression device Consult Discharge Plan - Plan Referrals: Mary Zendejas MD [Primary Care Provider] -
[2017-10-23] MEDS: Furosemide 20 MG TABLET PO SCH (17:30)
--- NOTE | 2017-10-23 19:39 | Anesthesia Evaluation PreOp ---
Date of Encounter: 10/23/17 Time of Encounter: 19:35 - Past History Planned Operation: Revision - R Total shoulder reverse Cardiac History: PA ("a long time" ago w/ 1 stent placed then, and 1 stent placed approx 1 year later [possibly 2013]), CHF (Chronic CHF without any exacerbations), HTN, Hyperlipidemia, Arrhythmia (Paroxysmal AFib s/p unsuccessful ablation. Rate controlled on Atenolol. 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 - Pt maintained on Memantine) Other Medical History: Renal (CRI), Bleeding (Hx DVT >10yrs ago), Diabetes Type II, GERD Anesthesia History: No Prior Anesthetic Complications, Past Anesthesia ( cholecystectomy, knee replacement, orthopedic, LIBBY/BSO) Alcohol Use: none Drug use: none Medications and Allergies Albuterol Sulfate [Ventolin Hfa] 1 - 2 puff IH Q4-6H PRN 10/21/17 [History] Amitriptyline HCl 100 - 300 mg PO HS 10/21/17 [History] Amlodipine Besylate 10 mg PO DAILY 10/21/17 [History] Atenolol 100 mg PO DAILY 10/21/17 [History] Atorvastatin Calcium [Lipitor] 80 mg PO HS 10/21/17 [History] Cholecalciferol (Vitamin D3) [Vitamin D] 50,000 unit PO QWEEK 10/21/17 [History] Dicyclomine [Bentyl] 20 mg PO BID 10/21/17 [History] Escitalopram [Lexapro] 10 mg PO DAILY 10/21/17 [History] Fenofibric Acid (Choline) [Trilipix] 135 mg PO DAILY 10/21/17 [History] Fluticasone Propionate [Flovent Hfa] 2 puff IH BID 10/21/17 [History] Furosemide [Lasix] 20 mg PO QPM 10/21/17 [History] Furosemide [Lasix] 40 mg PO QAM 10/21/17 [History] Insulin Glargine,Hum.rec.anlog [Lantus Solostar] 40 unit SQ HS 10/21/17 [History ] Insulin NPH Hum/Reg Insulin Hm [Novolin 70-30 100 Unit/ml Vial] 60 unit SQ QPM 10/21/17 [History] Insulin NPH Hum/Reg Insulin Hm [Novolin 70-30 100 Unit/ml Vial] 70 unit SQ QAM 10/21/17 [History] Isosorbide MONOnitrate (24 HR) [Imdur] 30 mg PO DAILY 10/21/17 [History] Levothyroxine [Synthroid] 25 mcg PO 0630 10/21/17 [History] Losartan Potassium [Cozaar] 100 mg PO DAILY 10/21/17 [History] Memantine HCl [Memantine HCl ER] 28 mg PO HS 10/21/17 [History] Nitroglycerin [Nitrostat] 0.4 mg SL Q5M PRN 10/21/17 [History] Potassium Chloride [Klor-Con 10] 20 meq PO DAILY 10/21/17 [History] Quetiapine Fumarate [SEROquel] 50 - 100 mg PO HS 10/21/17 [History] Ranitidine HCl [Zantac] 300 mg PO DAILY 10/21/17 [History] Tizanidine HCl 4 mg PO TID PRN 10/21/17 [History] Topiramate [Topamax] 100 mg PO HS 10/21/17 [History] 3 Allergy/AdvReac Type Severity Reaction Status Date / Time coconut oil AdvReac Hives Verified 01/23/16 05:53 codeine AdvReac Hives Verified 01/23/16 05:51 - Meds/Allergy Pre-op Review Medications Reviewed: Yes Allergies Reviewed: Yes Beta Blockers on Current Med List: Yes (Atenolol) If Beta Blockers taken, Date/Time (Last Dose taken): 10/23/2017 @ 1007 Anesthesia Results - Labs 10/23/17 08:48 10/23/17 08:48 Laboratory Tests 10/08/15 10/21/17 10/23/17 10:15 13:07 08:48 PT 11.1 INR 1.0 APTT 31.9 Sodium 142 Potassium 3.0 L Chloride 104 Carbon Dioxide 29 BUN 27 H Creatinine 1.19 Est GFR ( Amer) 56 L Est GFR (Non-Af Amer) 46 L Phosphorus 4.0 Calcium 9.4 Magnesium 10/23/17 08:48 PT INR APTT Sodium Potassium Chloride Carbon Dioxide BUN Creatinine Est GFR ( Amer) Est GFR (Non-Af Amer) Phosphorus Calcium Magnesium 2.1 Laboratory Results Impressions Head CT 10/21/17 14:24 IMPRESSION: No acute intracranial abnormality. D/ / Delio Salas MD / Delio Salas MD Interpreting Provider: Delio Salas MD - Imaging EKG: image reviewed (EKG Date - 74bpm AFib. ST deviation , Moderate T- wave abnormality, Lateral ischemia considered) Additional studies: ECHO 10/07/2017 EV/EV echocardiogram Impressions: LVEF 60-65%. Normal LV chamber size and function. Mild asymmetric hypertrophy of the basal seputm. Moderate left ventricular diastolic dysfunction. Normal right ventricular structure and function. Mild aortic regurgitation. Mild aortic stenosis. Mean gradient 13 mmHg. Mild tricuspid regurgitation. Mild-moderate pulmonary hypertension. Estimated RVSP is 45 mmHg. Left Ventricular Wall Motion: Rest Echo Findings All wall segments showed normal motion. Anesthesia Exam Vital Signs Temp Pulse Resp BP Pulse Ox 10/23/17 18:33 98.5 F 76 18 133/69 94 10/23/17 15:52 97.8 F 88 18 144/77 94 10/23/17 11:17 98.9 F 95 16 143/84 92 10/23/17 08:28 97.7 F 96 16 143/85 94 10/23/17 07:56 16 133/69 96 10/23/17 05:13 151/74 10/23/17 05:03 98.1 F 87 18 169/106 93 10/23/17 01:05 98.2 F 87 18 161/90 93 10/22/17 22:00 93 10/22/17 20:50 98.5 F 86 18 150/86 93 Intake and Output 10/23/17 10/23/17 10/23/17 07:59 15:59 23:59 Intake Total 240 / 240 Balance 240 / 240 Intake: Oral 240 / 240 Other: Meal Breakfast Dinner Percent of Meal Consumed 100% 100% Stool Size Small Stool Consistency formed Stool Color Brown # Urine Diapers 1 # Bowel Movements 1 Weight 68 kg Blood Glucose* 213 Patient Weight 10/23/17 23:59 Weight 68 kg Height: 5'4" Weight: 149# BMI = 25.7 - HEENT Pupil (Motor): Pupils equal, EOMI Mallampati: II Teeth: Normal, Missing Oral Opening: Greater than 3 - TRAM OPERATOR LOC: Oriented TRAM OPERATOR Motor: Normal RUE, Normal RLE, Normal LLE, Normal Face, Deficit LUE (Wrist casted, L-shoulder appears grossly dislocated) TRAM OPERATOR Sensory: Deficit: LUE - Cardiac Rhythm: Irregular Murmur: Systolic JVD: No - Pulmonary Breath Sounds: bilateral Clear Respiratory Effort: Symmetrical Anesthesia Assess/Plan ASA Score: 3 (CAD, CHF, Paroxysmal AFib, DM, Hypothyroidism, HTN, Chol, Smoker) Modified Paterson Scale for Level of Consciousness: Cooperative, oriented, and tranquil Anesthetic Plan: General, Regional Monitoring Plan: Standard Monitors, A-Line Anes Supervising Prov Stmt: Pt seen/evaluated, R&B discussed, questions answered and consent obtained . Andres Hobson MD
[2017-10-23] MEDS: Insulin DETEMIR 100 UNIT/ML X5UNITS SQ SCH (21:55)
[2017-10-23] MEDS: Topiramate 100 MG TABLET PO SCH (22:01)
[2017-10-24] MEDS: Levothyroxine 25 MCG TABLET PO SCH (05:32)
[2017-10-24] MEDS: Insulin LISPRO 300 UNITS/3 ML VIAL SQ SCH ×3 (07:19→15:56)
[2017-10-24] MEDS: Isosorbide MONOnitrate (24 HR) 30 MG TAB.ER.24H PO SCH (07:50)
[2017-10-24] MEDS: Furosemide 40 MG TABLET PO SCH (07:50)
[2017-10-24] MEDS: Cholecalciferol (D-3) 1,000 UNIT TABLET PO SCH (07:50)
[2017-10-24] MEDS: amLODIPine 5 MG TABLET PO SCH (07:51)
[2017-10-24] MEDS ORDERED: Ondansetron 4 MG/2 ML VIAL ONE (08:42)
[2017-10-24] MEDS ORDERED: Dexamethasone 4 MG/ML VIAL ONE (08:42)
[2017-10-24] MEDS ORDERED: *HR* Midazolam HCl 2 MG/2 ML VIAL ONE (08:42)
[2017-10-24] MEDS ORDERED: *HR* FentaNYL (PF) 100 MCG/2 ML VIAL ONE (08:42)
[2017-10-24] MEDS ORDERED: *HR* Propofol 200 MG/20 ML VIAL IVP ONE (08:43)
[2017-10-24] MEDS ORDERED: Lidocaine -MPF 2% 2 ML VIAL ONE (08:43)
[2017-10-24] MEDS ORDERED: Bupivacaine/Clonidine Syringe 1 EACH SYRINGE ONE (09:18)
[2017-10-24] MEDS ORDERED: ROPIVACAINE HCL/PF 0.5% 30 ML VIAL ONE (09:18)
[2017-10-24] MEDS ORDERED: Ethanol\\Acetic Acid\\Na Ace\\Ben 1,000 ML IRRIG.SOLN IR ONE (09:32)
[2017-10-24] MEDS ORDERED: *HR* Meperidine 25 MG/ML SYRINGE IVP PRN (09:41)
[2017-10-24] MEDS ORDERED: *HR* HYDROmorphone (PF) 1 MG/ML SYRINGE IVP PRN (09:41)
[2017-10-24] MEDS ORDERED: *HR* Promethazine 25 MG/ML VIAL IVP PRN (09:41)
[2017-10-24] MEDS ORDERED: Ondansetron 4 MG/2 ML VIAL IVP ONE (09:41)
[2017-10-24] MEDS ORDERED: Naloxone 0.4 MG/ML INJ IVP PRN ×2 (09:41→12:45)
--- NOTE | 2017-10-24 09:46 | Anesthesia Procedures ---
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 Surgical Procedure: Left Total Shoulder Revision Checklist: Correct Patient Identifier, Correct procedure, History checked Correct side: Left Blood Thinner: No Monitor Applied: EKG, BP, Pulse Oximetry Supplemental Oxygen via Nasal Cannula (L/min): 2 Sedation: Versed (mg): 2 Sedation: Fentanyl (mcg): 100 Indication: Post Op Analgesia Pre-op Neuro Deficits: No Block Type: Supraclavicular, Other (SCP, ICB) Catheter placed: No Sterile Technique: Yes Ultrasound used: Yes Anatomy identified: Yes Visual spread of Local: Yes Neuro Stimulation: No Blood on Needle Aspiration: No Smooth Injection of Local: Yes Pain with Injection of Local: No Prep: Chlorhexadine Needle: 22 x 50 mm Stimuplex Local: 0.25% Bupivicaine w/Clonidine 20 mcg/cc (10mL SCP and ICB), Ropivacaine ( 0.5% 30mL Supra) Volume (cc): 40mL Total Volume Number of Attempts: 1 Complications: None/effective block Vitals: VSS throughout. See nursing documentation.
[2017-10-24] MEDS: Budesonide/Formoterol 160/4.5 MDI IH SCH ×2 (10:53→20:30)
--- NOTE | 2017-10-24 11:25 | Orthopedic Operative Note ---
Date of procedure: 10/24/17 Pre-op diagnosis: Dissociated/dislocated left total shoulder replacement reverse Post-op diagnosis: same Procedure: Procedure: Revision left Total Shoulder Replacment Reverse, Estimated blood loss: 100 cc Hardware: Metal and polyethylene replacement: Gunner: 36 Glenosphere, 44- Biomet tray, 36 retentive Meaghan Biomet Exam Under anesthesia: Well-healed incision abnormal swelling underneath the skin consistent with dissociated Glenosphere restricted motion. Procedural Notes: Patient noted to have dissociated glenosphere, within a well encapsulated cyst in the subcutaneous tissue consistent with long-standing issue , humerus was dislocated anteriorly, malunion of greater tuberosity posteriorly , bony blockage inferior aspect of glenoid component preventing glenosphere from seating. Operative procedure: The patient was brought to the operating room and placed on the operating room table. After general anesthesia was administered the operative shoulder was examined. Findings were noted. The patient was placed in the modified beachchair position. All pressure points were padded appropriately. And the head was stabilized in the neutral position. The operative extremity was prepped and draped in the sterile surgical fashion. The patient received IV antibiotics prior to skin incision. A standard deltopectoral approach was made to the operative shoulder. Through the old incision, the Incision was made through the skin and subcutaneous tissue ,hemo stasis was obtained with Bovie cautery. Upon entering the subcutaneous tissue the glenoid sphere was encountered. This was in a well encapsulated cyst , the sphere was removed and the cyst was excised and passed off as specimen cultures were obtained. The deltopectoral interval was developed and the humerus was dislocated anteriorly below the deltoid. Patient had extensive scar tissue the metaphyseal portion of the component was removed the scar tissue was excised patient had a malunion of the greater tuberosity which is also removed. The glenoid component was exposed. Soft tissue was removed from the component along the inferior aspect there was bony blockage around the Keller taper. This was cleared out with a curet. A new 36 mm Glenosphere component was seated the Keller taper was tested and found to be well engaged. Trial reduction found the shoulder to be relocatable and stable with the 36 mm retentive Meaghan. The humerus was a Biomet stem and required the 44 Biomet tray. The shoulder was stable with the 36 retentive Meaghan patient had excellent motion and stability with the real components. The deep tissue was irrigated with pulse irrigation. The PA close the shoulder. The deltopectoral interval was closed with a running #1 PDS suture, subcutaneous tissue was irrigated and closed with 0 PDS suture, the skin was closed with Dermabond. The patient was placed in a sterile dressing, abduction brace and extubated. The patient was then transferred to the recovery room in stable condition. Anesthesia: GETA Surgeon: Richard Alberts Was there an assistant boys track coach present: No Estimated blood loss (cc): 100 Condition: stable Disposition: PACU
[2017-10-24 12:24] LABS: Hematocrit 37.4 % (35.3-44.9); Hemoglobin 12.5 g/dL (11.5-15.4)
[2017-10-24] MEDS ORDERED: Ringers Solution, Lactated 1,000 ML ONE (12:27)
[2017-10-24] MEDS ORDERED: Ondansetron 4 MG/2 ML VIAL IVP PRN (12:45)
[2017-10-24] MEDS ORDERED: tiZANidine 4 MG TABLET PO PRN (12:45)
[2017-10-24] MEDS ORDERED: Sennosides 8.6 MG TABLET PO PRN (12:45)
[2017-10-24] MEDS ORDERED: Temazepam 15 MG CAPSULE PO PRN (12:45)
[2017-10-24] MEDS ORDERED: MOM Conc 10 ML UD.LIQ PO PRN (12:45)
[2017-10-24] MEDS ORDERED: Ringers Solution, Lactated 1,000 ML IVC SCH (12:45)
[2017-10-24] MEDS ORDERED: Albuterol 2.5 MG/3 ML NEBULIZER IH PRN (12:45)
[2017-10-24] MEDS ORDERED: *HR* OxyCODONE Immed Rel 5 MG TABLET PO PRN (12:45)
[2017-10-24] MEDS ORDERED: *HR* Dextrose 50 % in Water (Syg) 50 ML SYRINGE IVP PRN (12:45)
[2017-10-24] MEDS ORDERED: D5% in Water 1,000 ML IVC PRN (12:45)
[2017-10-24] MEDS ORDERED: NON-FORMULARY MEDICATION 1 EACH EACH (Cholecalciferol (Vitamin D3) [Vitamin D3] 50,000 UNI PO SCH (12:45)
[2017-10-24] MEDS ORDERED: Nitroglycerin 0.4 MG TAB.SUBL SL PRN ×2 (12:45)
[2017-10-24] MEDS ORDERED: Dextrose Gel 15 GM/37.5 ML TUBE PO PRN ×2 (12:45)
[2017-10-24] MEDS ORDERED: traMADol 50 MG TABLET PO PRN (12:45)
[2017-10-24] MEDS: CeFAZolin Pre 2,000 MG/100 ML 2,000 MG/100 ML BAG IVPB SCH ×2 (15:54→23:07)
--- NOTE | 2017-10-24 16:22 | Electrocardiograph Report ---
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
--- NOTE | 2017-10-24 17:26 | Anesthesia Evaluation Post Op ---
Date of Encounter: 10/24/17 Time of Encounter: 12:34 Notes: Patient's vital signs have been reviewed. Patient is stable postoperatively and has adequately recovered from anesthesia. Patient is determined to have stable airway patency and respiratory function including respiratory rate and oxygen saturation. Patient has a stable heart rate, blood pressure and adequate hydration. Patients mental status is acceptable. Patients temperature is appropriate. Pain and nausea are adequately controlled. - Discharge PostOp Status: Transfer Patient to floor
[2017-10-24] MEDS ORDERED: Insulin NPH/REG 70/30 100 UNIT/ML (x5UNIT) SQ SCH (18:00)
[2017-10-24] MEDS ORDERED: Furosemide 20 MG TABLET PO SCH ×2 (18:00)
[2017-10-24] MEDS: *HR* OxyCODONE/APAP 5/325 TABLET PO PRN ×2 (18:23→23:06)
[2017-10-24] MEDS ORDERED: Topiramate 100 MG TABLET PO SCH ×2 (21:00)
[2017-10-24] MEDS ORDERED: Insulin LISPRO 300 UNITS/3 ML VIAL SQ SCH (21:00)
[2017-10-24] MEDS ORDERED: NON-FORMULARY MEDICATION 1 EACH EACH (Atorvastatin Calcium [Lipitor] 80 MG) PO SCH (21:00)
[2017-10-24] MEDS ORDERED: MEMANTINE HCL 28 MG PO SCH (21:00)
[2017-10-24] MEDS ORDERED: Insulin DETEMIR 100 UNIT/ML X5UNITS SQ SCH (21:00)
[2017-10-24] MEDS ORDERED: NON-FORMULARY MEDICATION 1 EACH EACH (Fluticasone Propionate [Flovent Hfa] 2 PUFF) IH SCH (21:00)
[2017-10-25 05:23] LABS: Hematocrit 33.2 % (35.3-44.9); Hemoglobin 11.4 g/dL (11.5-15.4)
[2017-10-25] MEDS: *HR* OxyCODONE/APAP 5/325 TABLET PO PRN ×2 (05:27→10:38)
[2017-10-25] MEDS ORDERED: Levothyroxine 25 MCG TABLET PO SCH ×2 (06:30)
--- NOTE | 2017-10-25 06:42 | Discharge Summary ---
Orders not resulted at time of discharge: Pending orders 10/24/17 08:39 US anesthesia pain block [US] Routine 10/24/17 10:27 Culture,Anaerobic [RM] Routine Culture,Wound [RM] Stat 10/26/17 04:00 Hemoglobin and Hematocrit [HEME] AM 0400 Date of Encounter: 10/25/17 Time of Encounter: 06:40 - Discharge Diagnosis (1) Hardware failure Priority: Primary Status: Chronic (2) Diabetes Priority: Secondary Status: Chronic Qualifiers: Diabetes mellitus type: type 2 Diabetes mellitus group home insulin use: unspecified group home insulin use status Diabetes mellitus complication status : with unspecified complications Qualified Code(s): E11.8 - Type 2 diabetes mellitus with unspecified complications (3) Altered mental status Priority: Primary Status: Resolved Qualifiers: Altered mental status type: unspecified Qualified Code(s): R41.82 - Altered mental status, unspecified (4) Dislocated shoulder Priority: Primary Status: Chronic Qualifiers: Encounter type: subsequent encounter Laterality: left Qualified Code(s): S43.005D - Unspecified dislocation of left shoulder joint, subsequent encounter (5) A-fib Priority: Secondary Status: Chronic Qualifiers: Atrial fibrillation type: chronic Qualified Code(s): I48.2 - Chronic atrial fibrillation (6) Preop cardiovascular exam Priority: Secondary Status: Acute (7) Painful orthopaedic hardware Priority: Primary Status: Chronic (8) Recurrent dislocation, left shoulder Priority: Primary Status: Chronic (9) Closed left radial fracture Priority: Primary Status: Acute Qualifiers: Encounter type: initial encounter Radius location: distal Fracture morphology: unspecified fracture morphology Qualified Code(s): S52.502A - Unspecified fracture of the lower end of left radius, initial encounter for closed fracture (10) History of total replacement of left shoulder joint Priority: Secondary Status: Chronic (11) DVT prophylaxis Priority: Secondary Status: Chronic - Hospital Course Hospital course: Ms. Huerta is a 61 year old female With dissociation of glenoid of left total shoulder replacement reverse and dislocation humerus. Patient with altered mental status admitted for evaluation prior to surgery for definitive workup. Patient was cleared for surgery The patient had an uneventful postoperative course. They received antibiotics and physical therapy and were discharged in stable condition. There will follow -up in the office in 2 weeks. - Time Spent with Patient Total time spent providing and/or coordinating discharge services: - Discharge Medications Home Medications: Albuterol Sulfate [Ventolin Hfa] 1 - 2 puff IH Q4-6H PRN 10/21/17 [History] Amitriptyline HCl 100 - 300 mg PO HS 10/21/17 [History] Amlodipine Besylate 10 mg PO DAILY 10/21/17 [History] Atenolol 100 mg PO DAILY 10/21/17 [History] Atorvastatin Calcium [Lipitor] 80 mg PO HS 10/21/17 [History] Cholecalciferol (Vitamin D3) [Vitamin D] 50,000 unit PO QWEEK 10/21/17 [History] Dicyclomine [Bentyl] 20 mg PO BID 10/21/17 [History] Escitalopram [Lexapro] 10 mg PO DAILY 10/21/17 [History] Fenofibric Acid (Choline) [Trilipix] 135 mg PO DAILY 10/21/17 [History] Fluticasone Propionate [Flovent Hfa] 2 puff IH BID 10/21/17 [History] Furosemide [Lasix] 20 mg PO QPM 10/21/17 [History] Furosemide [Lasix] 40 mg PO QAM 10/21/17 [History] Insulin Glargine,Hum.rec.anlog [Lantus Solostar] 40 unit SQ HS 10/21/17 [History ] Insulin NPH Hum/Reg Insulin Hm [Novolin 70-30 100 Unit/ml Vial] 60 unit SQ QPM 10/21/17 [History] Insulin NPH Hum/Reg Insulin Hm [Novolin 70-30 100 Unit/ml Vial] 70 unit SQ QAM 10/21/17 [History] Isosorbide MONOnitrate (24 HR) [Imdur] 30 mg PO DAILY 10/21/17 [History] Levothyroxine [Synthroid] 25 mcg PO 0630 10/21/17 [History] Losartan Potassium [Cozaar] 100 mg PO DAILY 10/21/17 [History] Memantine HCl [Memantine HCl ER] 28 mg PO HS 10/21/17 [History] Nitroglycerin [Nitrostat] 0.4 mg SL Q5M PRN 10/21/17 [History] Potassium Chloride [Klor-Con 10] 20 meq PO DAILY 10/21/17 [History] Quetiapine Fumarate [SEROquel] 50 - 100 mg PO HS 10/21/17 [History] Ranitidine HCl [Zantac] 300 mg PO DAILY 10/21/17 [History] Tizanidine HCl 4 mg PO TID PRN 10/21/17 [History] Topiramate [Topamax] 100 mg PO HS 10/21/17 [History] Allergies/Adverse Reactions: 3 Allergy/AdvReac Type Severity Reaction Status Date / Time coconut oil AdvReac Hives Verified 01/23/16 05:53 codeine AdvReac Hives Verified 01/23/16 05:51 Date of admission: 10/21/17 12:42 Primary care physician: Mary Zendejas MD Consults: 10/21/17 12:16 Consult to Cardiology [CONS] Stat Comment: Consulting Provider: Cardiology Cari Reason for Consult: clearance for revision surgery to left shoulder cynthia 10/24 Time Notified: 12:18 Call Completed: Yes 10/24/17 12:45 Consult to Occupational Therapy [CONS] Routine Comment: post shoulder surgery Reason for Consult: post shoulder surgery Does patient have active BEDREST order?: No Is patient medically & hemodynamically stable?: Yes Consult to Physical Therapy [CONS] Routine Comment: post shoulder surgery Reason for Consult: post shoulder surgery Does patient have active BEDREST order?: No Is patient medically & hemodynamically stable?: Yes RT Post Op Consult [CONS] Routine - VTE Documentation of Mechanical Device: Venous foot pump, device Labs on day of discharge: Labs from last 24 hours 10/25/17 10/24/17 10/24/17 04:43 12:01 05:39 Hgb 11.4 L 12.5 Hct 33.2 L 37.4 POC Glucose 162 H - Impressions ITS Impressions Head CT 10/21/17 14:24 IMPRESSION: No acute intracranial abnormality. D/ / Delio Salas MD / Delio Salas MD Interpreting Provider: Delio Salas MD Shoulder X-Ray 10/24/17 09:14 IMPRESSION: Satisfactory postoperative alignment, left shoulder arthroplasty revision. D/ / Emeka Kay MD / Emeka Kay MD Interpreting Provider: Emeka Kay MD - Patient Status Disposition: Home Health Service Condition: Fair Functional capacity at discharge: independent ambulation Overall status at discharge: patient is progressing back to baseline - Discharge Instructions Follow Up With: Mary Zendejas MD [Primary Care Provider] -
[2017-10-25] MEDS ORDERED: Potassium Chloride Elixir 20 MEQ/15 ML UDC PO ONE (06:43)
--- NOTE | 2017-10-25 06:43 | Orthopedics Progress Note ---
Date of Encounter: 10/25/17 Time of Encounter: 06:42 - Assessment and Plan (1) Hardware failure Current Visit: Yes Status: Chronic (2) Diabetes Current Visit: Yes Status: Chronic Qualifiers: Diabetes mellitus type: type 2 Diabetes mellitus stain maker insulin use: unspecified stain maker insulin use status Diabetes mellitus complication status : with unspecified complications Qualified Code(s): E11.8 - Type 2 diabetes mellitus with unspecified complications (3) Altered mental status Current Visit: Yes Status: Resolved Qualifiers: Altered mental status type: unspecified Qualified Code(s): R41.82 - Altered mental status, unspecified (4) Dislocated shoulder Current Visit: Yes Status: Chronic Qualifiers: Encounter type: subsequent encounter Laterality: left Qualified Code(s): S43.005D - Unspecified dislocation of left shoulder joint, subsequent encounter (5) A-fib Current Visit: Yes Status: Chronic Qualifiers: Atrial fibrillation type: chronic Qualified Code(s): I48.2 - Chronic atrial fibrillation (6) Preop cardiovascular exam Current Visit: Yes Status: Acute (7) Painful orthopaedic hardware Current Visit: Yes Status: Chronic (8) Recurrent dislocation, left shoulder Current Visit: Yes Status: Chronic (9) Closed left radial fracture Current Visit: No Status: Acute Qualifiers: Encounter type: initial encounter Radius location: distal Fracture morphology: unspecified fracture morphology Qualified Code(s): S52.502A - Unspecified fracture of the lower end of left radius, initial encounter for closed fracture (10) History of total replacement of left shoulder joint Current Visit: Yes Status: Chronic (11) DVT prophylaxis Current Visit: Yes Status: Chronic Subjective Principal diagnosis: Left total shoulder arthroplasty failure Interval history: Patient was seen this morning doing well without complaints. Afebrile vital signs stable. Operative extremity: Neurovascularly intact Dressing clean dry and intact Calves nontender Assessment and plan: Continue with postoperative care Hematocrit 33 discharged today Objective Vital signs: Vital Signs Temp Pulse Resp BP Pulse Ox 10/25/17 05:07 98.5 F 83 18 131/77 91 10/24/17 21:49 95 10/24/17 20:31 18 107/68 95 10/24/17 19:27 97.7 F 88 18 107/68 95 10/24/17 15:29 98.1 F 84 16 122/81 96 10/24/17 12:30 97.3 F L 61 14 118/67 97 10/24/17 12:20 97.3 F L 61 16 120/71 96 10/24/17 12:10 61 14 122/73 96 10/24/17 12:00 61 16 118/77 98 10/24/17 11:50 97.1 F L 60 14 118/77 96 10/24/17 09:51 85 10 80/53 97 10/24/17 09:36 81 9 88/63 98 10/24/17 09:18 87 16 122/75 99 10/24/17 09:12 89 16 122/75 94 10/24/17 07:11 98.3 F 65 16 162/90 96 Intake and Output 10/24/17 10/24/17 10/25/17 15:59 23:59 07:59 Intake Total 100 / 100 Output Total 100 / 100 Balance -100 / -100 100 / 100 Intake: IV Fluids 100 / 100 Ancef Premix 2,000 MG/100 ML 2, 100 / 100 000 mg In 100 ml @ 200 mls/hr IVPB Q8HR [facility] Rx#:[id number] Output: Estimated Blood Loss 100 / 100 Other: Blood Glucose* 249 325 - Labs CBC & BMP: 10/25/17 04:43 10/23/17 08:48 Labs: Abnormal lab results Hgb 11.4 g/dL (11.5-15.4) L 10/25/17 04:43 Hct 33.2 % (35.3-44.9) L 10/25/17 04:43 RDW 14.8 % (11.5-14.5) H 10/23/17 08:48 Potassium 3.0 mEq/L (3.5-5.1) L 10/23/17 08:48 BUN 27 mg/dL (8-23) H 10/23/17 08:48 Est GFR ( Amer) 56 (> 60) L 10/23/17 08:48 Est GFR (Non-Af Amer) 46 (> 60) L 10/23/17 08:48 Glucose 212 mg/dL (70-105) H 10/23/17 08:48 POC Glucose 162 mg/dL (70-99) H 10/24/17 05:39 Calculated Osmolality 305 (280-300) H 10/23/17 08:48 Ammonia 58 mcmol/L (16-53) H 10/22/17 14:28 - VTE Documentation of Mechanical Device: Venous foot pump, device Consult Discharge Plan - Plan Referrals: Mary Zendejas MD [Primary Care Provider] -
[2017-10-25 06:49] VITALS: BP 133/84
[2017-10-25] MEDS: Budesonide/Formoterol 160/4.5 MDI IH SCH (08:00)
[2017-10-25] MEDS ORDERED: Fenofibrate 54 MG TABLET PO SCH (09:00)
[2017-10-25] MEDS ORDERED: Furosemide 20 MG TABLET PO SCH (09:00)
[2017-10-25] MEDS ORDERED: NON-FORMULARY MEDICATION 1 EACH EACH (Ranitidine Hcl [Zantac] 300 MG) PO SCH (09:00)
[2017-10-25] MEDS ORDERED: Insulin NPH/REG 70/30 100 UNIT/ML (x5UNIT) SQ SCH (09:00)
[2017-10-25] MEDS ORDERED: Cholecalciferol (D-3) 1,000 UNIT TABLET PO SCH (09:00)
[2017-10-25] MEDS ORDERED: amLODIPine 5 MG TABLET PO SCH (09:00)
[2017-10-25] MEDS ORDERED: NON-FORMULARY MEDICATION 1 EACH EACH (Amlodipine Besylate [Amlodipine Besylate] 10 MG) PO SCH (09:00)
[2017-10-25] MEDS ORDERED: NON-FORMULARY MEDICATION 1 EACH EACH (Losartan Potassium [Cozaar] 100 MG) PO SCH (09:00)
[2017-10-25] MEDS ORDERED: Furosemide 40 MG TABLET PO SCH (09:00)
[2017-10-25] MEDS ORDERED: ATENOLOL 100 MG PO SCH (09:00)
[2017-10-25] MEDS ORDERED: Isosorbide MONOnitrate (24 HR) 30 MG TAB.ER.24H PO SCH ×2 (09:00)
[2017-10-25] MEDS: Insulin LISPRO 300 UNITS/3 ML VIAL SQ SCH (09:12)
--- NOTE | 2017-10-25 11:37 | Event Note ---
Date of Encounter: 10/25/17 Time of Encounter: 08:45 PCR- POD#1 Revision left Total Shoulder Replacment Reverse 10/24/17 Dr. Alberts for Dissociated/dislocated left total shoulder replacement reverse PCR - Patient seen at bedside. She is alert and oriented. She is able to accurately recall and state her restrictions. No family available bedside. Sling shot in place to the left upper extremity. Neurovascularly intact to left upper extremity. Railcar Mechanic strength intact. Labwork and medications reviewed. Patient is afebrile and vital signs are stable. Pain control: Adequate Participating in PT. no shoulder motion. All questions and concerns addressed. Educated on use of incentive spirometer, ambulation, and hydration. Patient educated on post-operative restrictions and care. Addressed: PTs recommendations he have secondary to patient apparent unwillingness to perform self-care activities. Patient was educated that this is necessary for her to go home. She was demonstrates that she is able to care for herself adequately. She verbalizes understanding and agreement. She states she will work with therapy again today. D/C plan: Therapy recommend ECF however patient is adamant that she is going to go home with home health. Patient advised of risks and benefits of this and she verbalized understanding.
--- NOTE | 2017-10-25 22:21 | Physician Discharge Referral ---
Home Health/Hosp Referral Info Transfer to: Home Health Attending Provider: Dr. Alberts - Diagnosis (1) Dislocated shoulder Priority: Primary Status: Chronic (2) Painful orthopaedic hardware Priority: Primary Status: Chronic (3) Recurrent dislocation, left shoulder Priority: Primary Status: Chronic (4) Closed left radial fracture Priority: Secondary Status: Acute (5) History of total replacement of left shoulder joint Priority: Primary Status: Acute (6) Diabetes Priority: Secondary Status: Chronic - Respiratory Orders Smoking Cessation: Smoking cessation has been advised. For more information, call the [place] Tobacco Quit Line at 1-726-IKKE-NOW. - Dressing/Wound Care Site: left shoulder Type of Dressing/Treatments w/Frequency: Opsite placed. Keep dressing intact until first follow up appointment. If greater than 50% saturated, notify office, remove dressing and place appropriate dressing back in place. Leave Zipline intact. Opsite dressing is water resistant, not water-proof. OK to shower, but do not get dressing wet. - Diet/Nutrition Diet/Nutrition Orders: Regular - Activity Activity Orders: Up ad keegan, Ambulate, Chair, Walker Activity: List: NO SHOULDER MOTION. Remain in brace except for hygeine purposes and hand/wrist/ elbow gentle motion. PT/OT. NWB to affected upper extremity. Follow Shoulder Precautions x 6 weeks. Stay in brace during activity and at night. ICE and elevate extremity frequently throughout the day. - Services Needed Following services are medically necessary services: Nursing, Home Health Aide, Physical Therapy, Occupational Therapy - Transfer Medications Prescriptions: OxyCODONE Immed Rel [Roxicodone 5 MG] 5 mg PO Q6HR PRN 3 Days #12 tablet PRN Reason: Severe Pain Home Medications: Albuterol Sulfate [Ventolin Hfa] 1 - 2 puff IH Q4-6H PRN 10/21/17 [History] Amitriptyline HCl 100 - 300 mg PO HS 10/21/17 [History] Amlodipine Besylate 10 mg PO DAILY 10/21/17 [History] Atenolol 100 mg PO DAILY 10/21/17 [History] Atorvastatin Calcium [Lipitor] 80 mg PO HS 10/21/17 [History] Cholecalciferol (Vitamin D3) [Vitamin D] 50,000 unit PO QWEEK 10/21/17 [History] Dicyclomine [Bentyl] 20 mg PO BID 10/21/17 [History] Escitalopram [Lexapro] 10 mg PO DAILY 10/21/17 [History] Fenofibric Acid (Choline) [Trilipix] 135 mg PO DAILY 10/21/17 [History] Fluticasone Propionate [Flovent Hfa] 2 puff IH BID 10/21/17 [History] Furosemide [Lasix] 20 mg PO QPM 10/21/17 [History] Furosemide [Lasix] 40 mg PO QAM 10/21/17 [History] Insulin Glargine,Hum.rec.anlog [Lantus Solostar] 40 unit SQ HS 10/21/17 [History ] Insulin NPH Hum/Reg Insulin Hm [Novolin 70-30 100 Unit/ml Vial] 60 unit SQ QPM 10/21/17 [History] Insulin NPH Hum/Reg Insulin Hm [Novolin 70-30 100 Unit/ml Vial] 70 unit SQ QAM 10/21/17 [History] Isosorbide MONOnitrate (24 HR) [Imdur] 30 mg PO DAILY 10/21/17 [History] Levothyroxine [Synthroid] 25 mcg PO 0630 10/21/17 [History] Losartan Potassium [Cozaar] 100 mg PO DAILY 10/21/17 [History] Memantine HCl [Memantine HCl ER] 28 mg PO HS 10/21/17 [History] Nitroglycerin [Nitrostat] 0.4 mg SL Q5M PRN 10/21/17 [History] Potassium Chloride [Klor-Con 10] 20 meq PO DAILY 10/21/17 [History] Quetiapine Fumarate [SEROquel] 50 - 100 mg PO HS 10/21/17 [History] Ranitidine HCl [Zantac] 300 mg PO DAILY 10/21/17 [History] Tizanidine HCl 4 mg PO TID PRN 10/21/17 [History] Topiramate [Topamax] 100 mg PO HS 10/21/17 [History] OxyCODONE Immed Rel [Roxicodone 5 MG] 5 mg PO Q6HR PRN 3 Days #12 tablet [Rx] Allergies/Adverse Reactions: 3 Allergy/AdvReac Type Severity Reaction Status Date / Time coconut oil AdvReac Hives Verified 01/23/16 05:53 codeine AdvReac Hives Verified 01/23/16 05:51 Certification: Further, I certify that my clinical findings support that this patient is homebound (i.e. absences from home require considerable and taxing effort and are for medical reasons or [employer] services or infrequently or short duration when for other reasons) because: Homebound Reason: Post-surgery restriction and or conditions limit ability to leave home Attestation: My signature below is to certify that this patient is under my care and that I, or nurse practitioner, or a physician help desk assistant working with me, has a face-to- face encounter with this patient.
== END 2017-10-25 12:28 | disposition home health service (06) | DRG 483 ==
LOC: 2ANU
PROVIDERS: ADMIT Orthopaedic Surgery; ATTEND Orthopaedic Surgery

== ENCOUNTER 2021-04-04 02:26 | Inpatient (IN) ==
[2021-04-04] MEDS ORDERED: Naloxone 0.4 MG/ML INJ IVP PRN (04:46)
[2021-04-04] MEDS ORDERED: Furosemide 40 MG/4 ML VIAL IVP ONE (05:51)
[2021-04-04] MEDS: hydrALAZINE 10 MG TABLET PO PRN ×2 (06:07→10:44)
[2021-04-04] MEDS ORDERED: Potassium Chloride Elixir 20 MEQ/15 ML UDC PO ONE (06:14)
[2021-04-04] MEDS ORDERED: Perflutren Lipid Microsphere 1.3 ML in 0.9 % Sodium Chloride 8.7 ML IVP PRN (06:14)
[2021-04-04] MEDS ORDERED: *HR* Labetalol 20 MG/4 ML SYRINGE IVP PRN (06:49)
[2021-04-04] MEDS ORDERED: D5% in Water 1,000 ML IVC PRN (06:59)
[2021-04-04] MEDS ORDERED: Dextrose Gel 15 GM/37.5 ML TUBE PO PRN ×2 (06:59)
[2021-04-04] MEDS ORDERED: *HR* Dextrose 50 % in Water (Syg) 50 ML SYRINGE IVP PRN (06:59)
[2021-04-04 07:02] LABS: Basophils % 0.5 %; Eosinophils # 0.1 K/mcL (0.0-0.6); Eosinophils % 1.7 %; Hematocrit 36.3 % (35.3-44.9); Immature Granulocytes % 0.9 % (0-4); Lymphocytes % 15.8 %; Mean Corpuscular HGB Conc 33.1 g/dL (31.6-35.5); Mean Corpuscular Hemoglobin 30.2 pg (28.0-33.3); Mean Corpuscular Volume 91.2 fL (83.0-100.0); Mean Platelet Volume 11.7 fL (9.4-12.4); Monocytes # 0.5 K/mcL (0.0-1.3); Monocytes % 6.8 %; Neutrophils # 4.9 K/mcL (1.6-8.9); Platelet Count 207 K/mcL (140-400); Red Blood Count 3.98 M/mcL (3.82-4.97); Red Cell Distribution Width 13.9 % (11.5-14.5); Segmented Neutrophils % 74.3 %; White Blood Count 6.6 K/mcL (4.3-11.1)
[2021-04-04 07:11] LABS: INR 1.8
[2021-04-04 07:27] LABS: Troponin I 0.05 ng/mL (< 0.04)
[2021-04-04 07:28] LABS: Albumin 3.4 g/dL (3.5-5.7); Albumin/Globulin Ratio 1.5 (1.1-2.2); Bilirubin,Total 0.7 mg/dL (0.3-1.0); Calcium 8.7 mg/dL (8.6-10.3); Globulin 2.3 g/dL (2.4-3.5); Magnesium 1.7 mg/dL (1.6-2.6); Phosphorous 3.3 mg/dL (2.7-4.5); Potassium 3.2 mEq/L (3.5-5.1); Total Protein 5.7 g/dL (6.4-8.9)
[2021-04-04] MEDS: Insulin LISPRO 300 UNITS/3 ML VIAL SUBQ SCH ×3 (07:55→17:22)
[2021-04-04] MEDS ORDERED: Metoprolol 100 MG TABLET PO SCH (09:00)
[2021-04-04] MEDS: amLODIPine 5 MG TABLET PO SCH (09:07)
[2021-04-04] MEDS: Isosorbide MONOnitrate (24 HR) 30 MG TAB.ER.24H PO SCH (09:07)
[2021-04-04] MEDS: Pregabalin 50 MG CAPSULE PO SCH ×2 (09:07→20:14)
[2021-04-04] MEDS: Gabapentin 100 MG CAPSULE PO SCH ×2 (14:52→20:14)
[2021-04-04] MEDS: hydrALAZINE 25 MG TABLET PO SCH ×3 (14:52→22:28)
[2021-04-04] MEDS: Apixaban 5 MG TABLET PO SCH (20:13)
[2021-04-04] MEDS ORDERED: Topiramate 100 MG TABLET PO SCH (21:00)
[2021-04-04] MEDS ORDERED: QUEtiapine Fumarate 100 MG TABLET PO SCH (21:00)
[2021-04-05 00:55] LABS: Hematocrit 35.2 % (35.3-44.9); Hemoglobin 11.2 g/dL (11.5-15.4); Mean Corpuscular HGB Conc 31.8 g/dL (31.6-35.5); Mean Corpuscular Hemoglobin 29.3 pg (28.0-33.3); Mean Corpuscular Volume 92.1 fL (83.0-100.0); Mean Platelet Volume 11.6 fL (9.4-12.4); Platelet Count 183 K/mcL (140-400); Red Blood Count 3.82 M/mcL (3.82-4.97); Red Cell Distribution Width 14.2 % (11.5-14.5); White Blood Count 5.8 K/mcL (4.3-11.1)
[2021-04-05 01:09] LABS: Estimated Average Glucose 177 mg/dl; Hemoglobin A1C 7.8 %
[2021-04-05 01:14] LABS: Calcium 8.2 mg/dL (8.6-10.3); Potassium 3.8 mEq/L (3.5-5.1)
[2021-04-05] MEDS: hydrALAZINE 25 MG TABLET PO SCH ×2 (05:44→12:09)
[2021-04-05] MEDS ORDERED: Levothyroxine 25 MCG TABLET PO SCH (06:30)
[2021-04-05] MEDS ORDERED: 0.9 % Sodium Chloride 1,000 ML IVC SCH (08:15)
[2021-04-05] MEDS ORDERED: Furosemide 40 MG/4 ML VIAL IVP SCH (09:00)
[2021-04-05] MEDS ORDERED: cefTRIAXone 1,000 MG in 0.9 % Sodium Chloride Mini Bag 100 ML IVPB SCH (09:00)
[2021-04-05] MEDS: Insulin LISPRO 300 UNITS/3 ML VIAL SUBQ SCH ×4 (09:09→17:39)
[2021-04-05] MEDS ORDERED: Gadolinium Contrast Agent (WT Based) IV PRN (09:32)
[2021-04-05 09:47] LABS: ABG Base Excess -1 mEq/L (-2 to 3); ABG HCO3 24 mEq/L (21-27); ABG Oxygen Saturation 95 % (95-98); ABG PCO2 35 mmHg (35-45); ABG PH 7.43 pH Units (7.32-7.45); ABG PO2 72 mmHg (85-104); ABG TCO2 25 mEq/L (20-26)
[2021-04-05] MEDS ORDERED: HUM PROTHROMBIN CPLX IVPB ONE (11:40)
[2021-04-05] MEDS ORDERED: WATER FOR INJ IVPB ONE (11:40)
[2021-04-05] MEDS ORDERED: [UNRECOGNIZED DRUG - OTHER] IVPB ONE (11:40)
[2021-04-05] MEDS: Pregabalin 50 MG CAPSULE PO SCH (12:06)
[2021-04-05] MEDS: Isosorbide MONOnitrate (24 HR) 30 MG TAB.ER.24H PO SCH (12:06)
[2021-04-05] MEDS: amLODIPine 5 MG TABLET PO SCH (12:08)
[2021-04-05] MEDS: Gabapentin 100 MG CAPSULE PO SCH (12:08)
[2021-04-05] MEDS: Apixaban 5 MG TABLET PO SCH (12:15)
[2021-04-05 13:03] LABS: INR 1.3; Prothrombin Time 14.9 Seconds (9.4-12.1)
[2021-04-05] MEDS: niCARdipine 20 MG/200 ML MLS IVC SCH ×2 (15:37→19:32)
[2021-04-05] MEDS ORDERED: Albumin 25% 25gram/100mL 25 GM/100 ML IV.SOLN IVPB SCH (16:00)
[2021-04-05 19:42] VITALS: TEMP 97.6; O2SAT 93
[2021-04-05] MEDS ORDERED: Furosemide 20 MG/2 ML VIAL IVP SCH (21:00)
[2021-04-06 00:07] VITALS: PULSE 70
[2021-04-06 00:17] VITALS: BP 158/60
== END 2021-04-05 23:40 | disposition short-term general hospital (02) | DRG 54 ==
LOC: 3BNU → SUATTDRO 04:09 → 2NNU 04-05 15:13
PROVIDERS: ADMIT Internal Medicine; ATTEND Registered Nurse